=== PATIENT | male | born 1965 | race Caucasian/White ===

== ENCOUNTER → 2017-06-29 | Day surgery (SDC) | payer OTHER ==
[~2017-06-29] MED LIST: ASPI81 PO; BACITRACIN TOP OINT 15 GM TUBE ONE; BUPIVACAINE LIPOSOME PF 1.3% 20 ML VIAL ONE; FEXO180 PO; LACTATED RINGER'S 1000 ML INJ 1,000 ML ONE; MIDAZOLAM HCL 2 MG/2 ML VIAL ONE; NEBI5 PO; ONDANSETRON HCL 4 MG/2 ML VIAL IV PUSH ONE; PROPOFOL 500 MG/50 ML BTL IV ONE; ceFAZolin 2 GM PREMIX 50 ML ONE
--- NOTE | 2017-06-30 17:53 | TN ---
cc: JAILENE SHEFFIELD DATE OF SURGERY: 06/29/2017 DIAGNOSIS: Thin melanoma right calf. POSTOPERATIVE DIAGNOSIS Thin melanoma right calf. PROCEDURE: Wide excision of right calf melanoma with complex closure of wound. 7 cm x 2.5 cm. SURGEON: Jailene Sheffield MD. PRODUCTION ANALYST: Staff ANESTHESIA TIVA and local anesthetic with Marcaine and Exparel BLOOD LOSS Less than 10 cc. COMPLICATIONS None FINDINGS Biopsy site completely excised with 1 cm margin closed with a moderate amount of tension. INDICATIONS FOR PROCEDURE The patient is a 51 old male recently diagnosed with a right posterior calf melanoma on a shave biopsy. The patient is clinically node-negative. The patient was recommend to undergo wide excision of the lesion. The risks, benefits, and alternatives were discussed with the patient prior to procedure and the patient agreed to undergo the procedure. PROCEDURE After informed consent was obtained the patient was taken to the operating room placed in the supine position and placed under TIVA anesthetic. The patient's lag was placed in a frogleg position and right calf was prepped and draped in sterile fashion. Time-out was performed. Local anesthetic with Marcaine was instilled in the area in a field type block around the planned excision. We marked this area 1 cm wide, 360 degrees around the biopsy site which had been confirmed preoperatively. We extended this into an elliptical fashion in-line with the extremity to facilitate closure. We excised this with a 15 blade scalpel followed by Bovie electrocautery down to the fascia of the leg. This was marked with a stitch superior 12 o'clock and passed off for permanent pathological processing. There was a significant amount of tension due to the melanoma being located on the lower leg. However, we were able to undermined extensively 360 degrees under the wound in order to elevate skin and subcutaneous flaps. Once we had done this, we were able to close the wound under some moderate amount of tension with several deep dermal 2-0 Vicryl sutures. We did place several 2-0 nylon vertical mattress external retention sutures to reinforce the closure due to the moderate tension. We had a complete closure of the skin at this point. We had excellent hemostasis. There was no ischemia and we appeared to technically have sound closure. We did place antibacterial ointment over the incision and placed a nonstick dressing followed by an Joni wrap. At this point and time the patient was discontinued from TIVA taken to PACU in stable condition. The patient tolerated the procedure well; no apparent complications. All counts were correct. I was present and scrubbed throughout the entire procedure. MD SHANKAR Bernal/niels /5:18 PM /5:31 PM GINA
== END | disposition home or self-care (01) ==
LOC: ESDC 13:08
PROVIDERS: ATTEND Surgery
DX: C43.71 Malignant melanoma of right lower limb, including hip (principal)
CPT/HCPCS: 00400; 11606; 13121; 88305; C9290; J0690; J2250; J2405; J3010; J7120

== ENCOUNTER → 2017-07-27 | Day surgery (SDC) | payer OTHER ==
[~2017-07-27] MED LIST changes: -BACITRACIN TOP OINT 15 GM TUBE ONE; -BUPIVACAINE LIPOSOME PF 1.3% 20 ML VIAL ONE; +BUPIVACAINE/EPINEPHRINE 0.25% 50 ML VIAL ONE; +NEOMYCIN/POLYMYXIN/BACITRACIN OINT 15 GM TUBE ONE; -ONDANSETRON HCL 4 MG/2 ML VIAL IV PUSH ONE; +PROPOFOL 200 MG/20 ML AMP IV ONE; -PROPOFOL 500 MG/50 ML BTL IV ONE
--- NOTE | 2017-07-27 10:39 | TN ---
cc: JAILENE SHEFFIELD DATE OF SURGERY 07/27/2017 PREOPERATIVE DIAGNOSIS Thin melanoma right lower extremity and melanoma in situ with positive margins. POSTOPERATIVE DIAGNOSIS Thin melanoma right lower extremity and melanoma in situ with positive margins. PROCEDURE Picture frame margin excision of right calf and area previously biopsied thin melanoma and melanoma in situ times six biopsies. (incisional biopsies of 3 mm x 2 cm). 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 He underwent biopsies and this was shown to be a thin melanoma. Wide excision and primary closure was performed, however, there were multiple areas positive for melanoma in situ on a previous biopsy. All invasive melanoma was removed. On discussion with the patient, due to the large area of biopsy proven melanoma in situ at the margins, a large excision and skin graft was going to be required to clear the melanoma. I did recommend a staged procedure with excision of margins in the picture frame type of pattern in order to appropriately identify negative margins prior to committing the patient to a large excision and skin grafting procedure. The risks, benefits and alternatives were discussed and he wished to proceed with this treatment plan. PROCEDURE The patient was taken to the operating room, placed in a right lateral decubitus position and placed under TIVA anesthetic. His right calf and lower extremity was prepped and draped in the usual sterile fashion. Time-out was performed. Local anesthetic was instilled throughout the area. We marked a circular area over the right calf that was full encompassing the previous excision scar. We took incisional biopsies with a 15 blade scalpel approximately 2 cm long x 53 mm wide at 2, 4, 6, 8, 10 and 12 o'clock positions. These were passed off as separate specimens in permanent formalin. We used Bovie electrocautery for hemostasis. We closed all these incisional biopsies again which were 3 mm x 2 cm approximately each with a running 3-0 nylon suture. The patient tolerated the procedure well. No apparent complications. All counts were correct. The patient was discontinued from TIVA, taken to the PACU in stable condition. The patient tolerated the procedure well. No apparent complications. I was present and scrubbed for the entire procedure. MD SHANKAR Bernal/DJL /10:19 AM /10:29 AM
== END | disposition home or self-care (01) ==
LOC: ESDC 06:49
PROVIDERS: ATTEND Surgery
DX: C43.71 Malignant melanoma of right lower limb, including hip (principal)
CPT/HCPCS: 00400; 11602; 11603; 88305; J0690; J2250; J3010; J7120